=== PATIENT | female | born 1995 | race Two or more races ===

== ENCOUNTER 2018-09-25 19:51 | Emergency (ER) | payer MEDICAID ==
[~2018-09-25] VITALS: Ht 160 cm; Wt 63.5 kg
[~2018-09-25 19:51] MED LIST: PREN-59 PO
--- NOTE | 2018-09-25 20:00 | NUR ---
BIBSELF C/O LEFT ARM AND LEFT LEG NUMBNESS AND TINGLING X1 DAY. +NECK PAIN -TRAUMA, -N/D,+V, -HEADACHE,-SOB,-CHEST PAIN, TO ER BED 6, HOOKED TO MONITOR, AWAITING MD LANDIS
--- NOTE | 2018-09-25 20:08 | NUR ---
DR LOPEZ AT BEDSIDE
[2018-09-25 20:47] VITALS: BP 125/72
--- NOTE | 2018-09-25 20:47 | NUR ---
Patient discharged to home in stable condition. Written and verbal after care instructions given. Patient verbalizes understanding of instruction.
== END 2018-09-25 20:48 | disposition home or self-care (01) ==
LOC: ER 20:00
DX: M21.332 Wrist drop, left wrist (principal)
CPT/HCPCS: 29125; 99283; A4606

== ENCOUNTER 2019-04-17 14:26 | Emergency (ER) | payer SELFPAY ==
[~2019-04-17] VITALS: Ht 160 cm; Wt 63.5 kg
[2019-04-17 14:51] VITALS: BP 135/85
--- NOTE | 2019-04-17 15:11 | NUR ---
Patient discharged to home in stable condition. Written and verbal after care instructions given. Patient verbalizes understanding of instruction.
== END 2019-04-17 15:11 | disposition home or self-care (01) ==
LOC: ER 14:29
DX: L03.113 Cellulitis of right upper limb (principal)

== ENCOUNTER 2019-07-12 11:47 | Emergency (ER) | payer SELFPAY ==
[~2019-07-12] VITALS: Ht 160 cm; Wt 63.5 kg
[2019-07-12] MEDS ORDERED: IBUPROFEN 600 MG TABLET PO ONE ×2 (12:13→12:30)
[2019-07-12 13:03] VITALS: BP 104/69
--- NOTE | 2019-07-12 13:03 | NUR ---
Patient discharged to home in stable condition. Written and verbal after care instructions given. Patient verbalizes understanding of instruction.
== END 2019-07-12 13:04 | disposition home or self-care (01) ==
LOC: ER 11:47
DX: J20.9 Acute bronchitis, unspecified (principal); R11.2 Nausea with vomiting, unspecified; Z79.899 Other long term (current) drug therapy
CPT/HCPCS: 71045-TC

== ENCOUNTER 2020-06-21 03:42 | Emergency (ER) | payer MEDICAID, OTHER ==
[~2020-06-21] VITALS: Ht 160 cm; Wt 63.5 kg
[2020-06-21 03:46] VITALS: BP 123/85
--- NOTE | 2020-06-21 04:22 | NUR ---
PT REFUSING ABG. NOTIFIED.
== END 2020-06-21 05:46 | disposition home or self-care (01) ==
LOC: ER 03:48
DX: T59.811A Toxic effect of smoke, accidental (unintentional), initial encounter (principal); R51.9 Headache, unspecified; Y92.89 Other specified places as the place of occurrence of the external cause

== ENCOUNTER 2020-10-28 18:28 | Emergency (ER) | payer OTHER ==
[~2020-10-28] VITALS: Ht 160 cm; Wt 68.0 kg
--- NOTE | 2020-10-28 18:51 | NUR ---
BIB SELF C/O NOSE PAIN SINCE THURSDAY "MY PHONE ACCIDENTALLY HIT MY NOSE". RATES PAIN 12/03. DENIES SOB. RESPIRATION REGULAR AND UNLABORED. WILL CONTINUE TO MONITOR.
--- NOTE | 2020-10-28 19:10 | NUR ---
Patient discharged to home in stable condition. Written and verbal after care instructions given. Patient verbalizes understanding of instruction. The patient left ER in stable condition.
[2020-10-28 19:11] VITALS: BP 135/79
== END 2020-10-28 19:13 | disposition home or self-care (01) ==
LOC: ER 18:32
DX: S02.2XXA Fracture of nasal bones, initial encounter for closed fracture (principal); Z79.899 Other long term (current) drug therapy; W22.8XXA Striking against or struck by other objects, initial encounter; Y93.89 Activity, other specified; Y92.89 Other specified places as the place of occurrence of the external cause; Y99.8 Other external cause status

== ENCOUNTER 2021-04-04 09:13 | Emergency (ER) | payer OTHER ==
[~2021-04-04] VITALS: Ht 160 cm; Wt 77.1 kg
[2021-04-04 09:23] VITALS: BP 119/67
== END 2021-04-04 09:34 | disposition home or self-care (01) ==
LOC: ER 09:15
DX: M54.2 Cervicalgia (principal); Z79.899 Other long term (current) drug therapy; V49.49XA Driver injured in collision with other motor vehicles in traffic accident, initial encounter; Y93.89 Activity, other specified; Y92.488 Other paved roadways as the place of occurrence of the external cause; Y99.8 Other external cause status

== ENCOUNTER 2021-10-30 22:45 | Emergency (ER) | payer OTHER ==
[~2021-10-30] VITALS: Ht 160 cm; Wt 72.6 kg
--- NOTE | 2021-10-30 23:06 | NUR ---
BIBS C/O LOWER ABDOMINAL PAIN RADIATING TO LOWER BACK "FEELS BLOATED" [id number] DENIES PAIN WHEN URINATING. PATIENT ALERT AND ORIENTED X3. AMBULATORY WITH NON LABORED BREAHTING IN BED 16 AWAITING MD LANDIS AND IN A GOWN.
--- NOTE | 2021-10-30 23:09 | NUR ---
URINE COLECETED AND SENT TO LAB
--- NOTE | 2021-10-30 23:15 | NUR ---
Patient eloped from facility. ER MD notified. No IV intact.
[2021-10-30 23:16] VITALS: BP 137/70
== END 2021-10-30 23:16 | disposition left against medical advice (07) ==
LOC: ER 23:00
DX: R10.9 Unspecified abdominal pain (principal); M54.9 Dorsalgia, unspecified